=== PATIENT | male | born 1975 | race Two or more races ===

== ENCOUNTER 2021-09-28 23:19 | Emergency (ER) | payer OTHER ==
[~2021-09-28] VITALS: Ht 177.8 cm; Wt 97.5 kg
[2021-09-29] MEDS ORDERED: KETO10TA2 PO (02:08)
[2021-09-29] MEDS ORDERED: CEPHALEXIN500 MG PO (02:08)
== END 2021-09-29 02:32 ==
LOC: ER 23:19
DX: S01.81XA Laceration without foreign body of other part of head, initial encounter (principal); S01.111A Laceration without foreign body of right eyelid and periocular area, initial encounter; V92.09XA Drowning and submersion due to fall off unspecified watercraft, initial encounter; Y93.89 Activity, other specified; Y92.89 Other specified places as the place of occurrence of the external cause

== ENCOUNTER 2021-10-07 11:01 | Emergency (ER) | payer OTHER ==
[~2021-10-07] VITALS: Ht 177.8 cm; Wt 95.3 kg
[~2021-10-07 11:01] MED LIST: CEPHALEXIN500 MG PO; KETO10TA2 PO
== END 2021-10-07 13:34 | disposition home or self-care (01) ==
LOC: ER 11:01
DX: Z48.02 Encounter for removal of sutures (principal)